=== PATIENT | female | born 1950 | race Caucasian/White ===

== ENCOUNTER 2017-06-16 18:41 | Emergency (ER) | payer OTHER ==
[~2017-06-16] VITALS: Ht 167.6 cm; Wt 110.4 kg
[~2017-06-16 18:41] MED LIST: PRMUNK; [UNRECOGNIZED DRUG - REMARK]; [UNRECOGNIZED DRUG - REMARK]
[2017-06-16 18:44] VITALS: TEMP 36.5; Ht 167.6 cm; Wt 110.4 kg
[2017-06-16] MEDS ORDERED: ACETAMINOPHEN 500 MG TAB PO STA (18:55)
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
--- NOTE | 2017-06-16 19:39 | DIAGNOSTIC IMAGING REPORT ---
HEAD WITHOUT CONTRAST (CT) CT DOSE: HISTORY: Trauma fell from [employer] 2 days ago TECHNIQUE: Multiaxial CT images of the head were performed without the use of intravenous contrast. A dose lowering technique was utilized adhering to the principles of ALARA. Comparison: 11/12/2009 Findings: The paranasal sinuses and mastoid air cells are clear. The calvarium and skull base are intact. The ventricles and sulci are within normal limits. There is no mass, hematoma, midline shift, or acute infarct. Impression: No acute intracranial abnormality. The above report was generated using voice recognition software. It may contain grammatical, syntax or spelling errors. Electronically signed by: Remington Hernandez M.D. 06/16/2017 7:38 PM Dictated Date/Time: 06/16/2017 7:37 PM
--- NOTE | 2017-06-16 19:41 | DIAGNOSTIC IMAGING REPORT ---
CERVICAL SPINE W/O CT DOSE: 1053.67 mGy.cm HISTORY: Trauma fell from [employer] 2 days ago TECHNIQUE: Multiaxial CT images of the cervical spine were performed and reformatted in the sagittal and coronal plane without the use of contrast. A dose lowering technique was utilized adhering to the principles of ALARA. COMPARISON: 11/10/2009 FINDINGS: No fractures. No subluxation. Prevertebral soft tissues and the C1-C2 interval are intact. No pneumothorax. IMPRESSION: No fractures within the cervical spine. Moderate degenerative change The above report was generated using voice recognition software. It may contain grammatical, syntax or spelling errors. Electronically signed by: Remington Hernandez M.D. 06/16/2017 7:40 PM Dictated Date/Time: 06/16/2017 7:39 PM
[2017-06-16 19:50] VITALS: BP 160/91; PULSE 77; O2SAT 99
[2017-06-16] MEDS ORDERED: CLON1TAB3 PO (19:56)
[2017-06-16] MEDS ORDERED: DIPH-416 PO (19:56)
[2017-06-16] MEDS ORDERED: ESTR0.3T PO (19:56)
== END 2017-06-16 19:58 | disposition home or self-care (01) ==
LOC: C.EDB 18:43 → C.EDA 19:58
DX: S09.90XA Unspecified injury of head, initial encounter (principal); S16.1XXA Strain of muscle, fascia and tendon at neck level, initial encounter; S30.0XXA Contusion of lower back and pelvis, initial encounter; W18.39XA Other fall on same level, initial encounter; H53.8 Other visual disturbances

== ENCOUNTER 2018-03-03 15:23 | Emergency (ER) | payer OTHER ==
[~2018-03-03] VITALS: Ht 167.6 cm; Wt 114.8 kg
[~2018-03-03 15:23] MED LIST changes: +CLON1TAB3 PO; +DIPH-416 PO; +ESTR0.3T PO; -PRMUNK; -[UNRECOGNIZED DRUG - REMARK]; -[UNRECOGNIZED DRUG - REMARK]
[2018-03-03 15:30] VITALS: TEMP 36.3; Ht 167.6 cm; Wt 114.8 kg
[2018-03-03] MEDS ORDERED: SODIUM CHLORIDE 0.9% 1000ML 1,000 ML IV STA (16:00)
[2018-03-03] MEDS ORDERED: MECLIZINE HCL 25 MG TAB PO STA (16:00)
[2018-03-03] MEDS ORDERED: ONDANSETRON INJ 2 MG/ML 2 ML VIAL IV STA (16:00)
[2018-03-03] MEDS ORDERED: DIAZEPAM INJ 5 MG/ML 2 ML CARP IV STA (16:00)
[2018-03-03] MEDS ORDERED: SODIUM CHLORIDE 0.9% 500ML 500 ML IV STA (16:00)
[2018-03-03] MEDS ORDERED: ACETAMINOPHEN 500 MG TAB PO STA (16:00)
[2018-03-03 16:10] LABS: BASO % 0.4 %; BASO ABS # 0.03 K/uL (0-0.2); EOS % 2.2 %; EOS ABS # 0.16 K/uL (0-0.5); HEMATOCRIT 42.1 % (37-47); HEMOGLOBIN 14.2 g/dL (12.0-16.0); IG# 0.01 K/uL (0.00-0.02); LYMPH % 32.6 %; LYMPH ABS # 2.36 K/uL (1.2-3.4); MEAN CELL VOLUME 90.3 fL (80-100); MEAN CORPUSCULAR HEMOGLOBIN 30.5 pg (25-34); MEAN CORPUSCULAR HGB CONC 33.7 g/dl (32-36); MEAN PLATELET VOLUME 10.6 fL (7.4-10.4); MONO % 5.2 %; MONO ABS # 0.38 K/uL (0.11-0.59); NEUT % 59.5 %; PLATELET COUNT 188 K/uL (130-400); RED CELL DISTRIBUTION WIDTH CV 13.4 % (11.5-14.5); RED CELL DISTRIBUTION WIDTH SD 44.1 fL (36.4-46.3); WHITE BLOOD COUNT 7.24 K/uL (4.8-10.8)
[2018-03-03 16:13] VITALS: O2SAT 98
[2018-03-03 16:15] LABS: INR 0.9 (0.9-1.1); PTT PATIENT 24.9 SECONDS (21.0-31.0)
[2018-03-03 16:18] LABS: ALBUMIN 3.5 gm/dl (3.4-5.0); ALT/SGPT 24 U/L (12-78); AST/SGOT 14 U/L (15-37); BLOOD UREA NITROGEN 9 mg/dl (7-18); CARBON DIOXIDE 29 mmol/L (21-32); CREATININE 0.99 mg/dl (0.60-1.20); GLUCOSE 115 mg/dl (70-99); LIPASE 105 U/L (73-393); POTASSIUM 3.8 mmol/L (3.5-5.1); SODIUM 141 mmol/L (136-145)
--- NOTE | 2018-03-03 16:22 | DIAGNOSTIC IMAGING REPORT ---
CHEST ONE VIEW PORTABLE HISTORY: 67 years-old Female EVALUATE WEAKNESS acute weakness COMPARISON: None available TECHNIQUE: Portable AP view of the chest FINDINGS: Cardiomediastinal and hilar silhouettes are within normal limits. Linear subsegmental bibasilar opacities suggest atelectasis. There is no pneumothorax, pleural effusion, focal airspace consolidation or overt pulmonary edema. The bones of the chest appear grossly intact. Degenerative changes are seen within the shoulders and spine. IMPRESSION: No acute process. The above report was generated using voice recognition software. It may contain grammatical, syntax or spelling errors. Electronically signed by: Junior Patel M.D. 03/03/2018 4:20 PM Dictated Date/Time: 03/03/2018 4:19 PM
[2018-03-03 16:29] LABS: ALKALINE PHOSPHATASE 64 U/L (45-117); TOTAL PROTEIN 7.2 gm/dl (6.4-8.2)
--- NOTE | 2018-03-03 16:45 | DIAGNOSTIC IMAGING REPORT ---
HEAD WITHOUT CONTRAST (CT) CLINICAL HISTORY: 67 years-old Female with EVALUATE WEAKNESS. Acute weakness with dizziness TECHNIQUE: Multiple axial CT images of the head were obtained without contrast. A dose lowering technique was utilized adhering to the principles of ALARA. CT DOSE: 788.63 mGycm COMPARISON: Head CT 2016. FINDINGS: No acute intracranial hemorrhage, midline shift, intracranial mass, hydrocephalus, territorial ischemia or abnormal extra-axial collection. Senescent calcifications of the lentiform nuclei. Mild atrophy. Mild degree of ill-defined low-attenuation within the subcortical and periventricular white matter suggests chronic microvascular ischemic changes. The calvarium is intact. The paranasal sinuses, mastoid air cells, and middle ear cavities are clear. IMPRESSION: No acute intracranial abnormality. The above report was generated using voice recognition software. It may contain grammatical, syntax or spelling errors. Electronically signed by: Junior Patel M.D. 03/03/2018 4:43 PM Dictated Date/Time: 03/03/2018 4:41 PM
[2018-03-03] MEDS ORDERED: ATR10 PO (17:14)
[2018-03-03] MEDS ORDERED: BUPRTAB PO (17:14)
[2018-03-03] MEDS ORDERED: ESCI1TAB10 PO (17:14)
[2018-03-03] MEDS ORDERED: ESTR1TAB2 PO (17:14)
[2018-03-03] MEDS ORDERED: CLON2TAB3 PO (17:14)
[2018-03-03] MEDS ORDERED: MECL1TAB42 PO (18:52)
[2018-03-03] MEDS ORDERED: MECLIZINE HCL 25MG HOME PACK PO ONE (19:00)
[2018-03-03 19:02] VITALS: BP 136/78; PULSE 86; O2SAT 97
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
== END 2018-03-03 19:02 | disposition home or self-care (01) ==
LOC: EDBD 15:23 → C.EDC 15:24
DX: R42 Dizziness and giddiness (principal); S06.9X9A Unspecified intracranial injury with loss of consciousness of unspecified duration, initial encounter; W18.39XA Other fall on same level, initial encounter; W22.8XXA Striking against or struck by other objects, initial encounter; Z90.710 Acquired absence of both cervix and uterus; Z88.4 Allergy status to anesthetic agent; Z83.3 Family history of diabetes mellitus; Z82.49 Family history of ischemic heart disease and other diseases of the circulatory system; Z84.1 Family history of disorders of kidney and ureter; Z82.0 Family history of epilepsy and other diseases of the nervous system

== ENCOUNTER 2022-02-03 11:21 | Observation (INO) ==
[2022-02-03] MEDS ORDERED: SODIUM CHLORIDE 0.9% 1000ML 1,000 ML IV ONE (11:53)
--- NOTE | 2022-02-03 12:01 | Emergency Department Note ---
Impression & Plan Dizziness, Weakness, Acute dehydration, Falling ED Provider Note NAME: ABILIO GALDAMEZ AGE: 71 SEX: F : 1950 ARRIVES VIA: Ambulance INFORMANT: [Patient] ED PROVIDER(S): [Marquis Ang MD] CHIEF COMPLAINT: Dizziness HISTORY OF PRESENT ILLNESS: The patient is a 71-year-old female who presents to the ER with 24 hours of dizziness and falling. The patient states that she is fine when she is not moving but when she tries to get around, she is quite off balance and has fallen at least 4 times. She has some neck soreness and some lower back soreness from falling. One time, she fell onto her face although, she did not suffer any nasal bleeding. The patient has not noticed one-sided weakness. No urinary complaints. No fever, chills, cough or congestion. The patient did try meclizine for her symptoms, this has not helped. REVIEW OF SYSTEMS: See HPI for pertinent positives and negatives. A total of ten systems were reviewed and were otherwise negative. PMHx/PSHx: See Below SOCIAL HISTORY: See Below. PHYSICAL EXAM: GENERAL: Patient is in no acute distress. HEENT: No acute trauma, normocephalic atraumatic, mucous membranes dry, no nasal congestion, no scleral icterus. No nystagmus. NECK: No stridor, no adenopathy, no meningismus, trachea is midline. LUNGS: Clear to auscultation bilaterally, no wheeze, no rhonchi, breath sounds equal. HEART: Without murmurs gallops or rubs, regular rate and rhythm. Heart tones are distant. ABDOMEN: Soft, nontender, bowel sounds positive, no hernias, no peritonitis. EXTREMITIES: No cyanosis or edema, full range of motion of all the joints without pain or difficulty, no signs for acute trauma. NEUROLOGIC: Oriented x 3, no acute motor or sensory deficits, no focal weakness. No speech slur or facial droop. No extremity drift. No cerebellar dysfunction. SKIN: No rash, no jaundice, no diaphoresis. DIFFERENTIAL DIAGNOSIS: Infection, UTI, dehydration, metabolic abnormality, hypo/hyperglycemia, electrolyte disturbance, anemia, hypoxia, cardiac sources, intracerebral event, toxicologic issues, stroke, TIA, vertigo, as well as other pathologies. EMERGENCY DEPARTMENT COURSE/PROCEDURES: ECG: Indication was weakness. The ECG shows a normal sinus rhythm with a rate of 70. There is no ST elevation, no PVCs. The QTc is 451. Continuous Cardiac Monitoring: An order was placed for continuous cardiac monitoring. The monitor shows a rate of 65 with normal sinus rhythm. Critical Care Note: I have personally spent 41 minutes of critical care time in the direct management of this patient. This includes bedside care, interpretation of diagnostic studies, and testing, discussion with consultants, patient, and family members, and other required patient management activities. This 41 minutes is in excess of all separately billable procedures. MEDICAL DECISION MAKING: There is no leukocytosis. There is no anemia. There is a normal platelet cou nt. No coagulopathy. No significant electrolyte abnormality or kidney failure. ECG shows a normal sinus rhythm, no obvious ST elevation. Cardiac enzyme testing x1 is not consistent with acute cardiac injury. There is no liver enzyme elevation. Urinalysis does not show infection. Covid testing returned negative. Brain CT shows no acute bleed or mass-effect. CT angio of the brain and neck were performed, there was no stenosis or aneurysm seen. No clot noted. CT of the lumbar spine does not show any acute fracture, CT of the cervical spine does not show any acute fracture. On exam, there were no focal neurologic deficits. There was no speech slur. The patient did seem dehydrated. Patient had fallen 4 times in 24 hours because of her dizziness/weakness. The patient was given IV saline, 1 L. She has been resting comfortably on the stretcher. The patient presents with findings consistent for posterior circulation stroke. Vertigo of course is also a potential cause of her complaints. She is weak, she is falling, she is not stable for discharge home. Further neurologic work-up is warranted. I spoke with the patient and case management. The on-call hospitalist was carlos blankenship. Past Med/Surg History Medical History BPPV (benign paroxysmal positional vertigo) Depression with anxiety IBS (irritable bowel syndrome) Obesity (BMI 30-39.9) Pre-diabetes Reflex sympathetic dystrophy Surgical History (Updated 02/03/22 @ 14:08 by Leslie Jacobs PA-C) History of ankle surgery History of cholecystectomy History of hand surgery History of shoulder surgery S/P hysterectomy Family History (Updated 02/03/22 @ 14:09 by Leslie Jacobs PA-C) Mother , 79 Myocardial infarction Father , 74 Liver disease Social History Smoking Status: Never smoker Hx Alcohol Use: No Hx Substance Use: No Preferred Language: Slovak Communication Ability: Effective marital status: / Current Living Situation: Alone current occupational status: disabled Feels Safe at Home: Yes Allergies Allergies Allergy/AdvReac Type Severity Reaction Status Date / Time LOCAL ANESTHESIA Allergy Unknown Unknown Uncoded 05/26/21 15:06 GENERAL ANESTHESIA AdvReac Intermediate BLOOD Uncoded 05/26/21 15:06 PRESSURE AND TEMP DROPPED Home Meds Home Medications Medication Instructions Recorded Confirmed clonazepam 2 mg tablet (Klonopin) 2 mg PO TID 11/15/19 02/03/22 diphenoxylate-atropine 2.5 2 tab PO QID PRN 11/15/19 02/03/22 mg-0.025 mg tablet escitalopram oxalate 20 mg tablet 20 mg PO DAILY 11/15/19 02/03/22 estradiol 1 mg tablet (Estrace) 1 mg PO DAILY 11/15/19 02/03/22 meclizine 25 mg tablet 25 mg PO TID 02/03/22 02/03/22 Results & Data (ED) Vital Signs Vital Signs - 24 hr 02/03/22 11:29 02/03/22 11:38 02/03/22 12:00 Temperature 36.6 C Temperature Source Oral Pulse Rate 65 Pulse Rate [Left] Pulse Rhythm Regular Pulse Rhythm [Left] Pulse Strength Normal Pulse Strength [Left] Respiratory Rate 18 Respiratory Effort / Characteristics Non-Labored Spontaneous Respiratory Depth Normal Respiratory Pattern Blood Pressure 178/110 H Blood Pressure [Left Arm] 155/75 H Blood Pressure Mean 132 Blood Pressure Mean [Left Arm] 101 Blood Pressure Position Lying Blood Pressure Position [Left Arm] Pulse Oximetry 98 98 Oxygen Delivery Method Room Air Room Air Oxygen Flow Rate 0 Sepsis Recent Fever Within 48 Hours No Sepsis New/Unexplained Change in Mental Status N/A Sepsis Action Taken by Nursing No Action Required 02/03/22 14:00 02/03/22 17:03 Temperature Temperature Source Pulse Rate Pulse Rate [Left] 67 63 Pulse Rhythm Pulse Rhythm [Left] Regular Pulse Strength Pulse Strength [Left] Normal Respiratory Rate 16 16 Respiratory Effort / Characteristics Non-Labored Spontaneous Non-Labored Spontaneous Respiratory Depth Normal Normal Respiratory Pattern Regular Blood Pressure Blood Pressure [Left Arm] 159/90 H 167/86 H Blood Pressure Mean Blood Pressure Mean [Left Arm] 113 113 Blood Pressure Position Blood Pressure Position [Left Arm] Lying Lying Pulse Oximetry 98 97 Oxygen Delivery Method Room Air Room Air Oxygen Flow Rate Sepsis Recent Fever Within 48 Hours Sepsis New/Unexplained Change in Mental Status Sepsis Action Taken by Longterm Medications Current Medication List: was personally reviewed by me Laboratory Data Attestation: I reviewed the patient's lab results. Result diagrams: 02/03/22 11:55 02/03/22 11:55 Lab Results 02/03/22 02/03/22 02/03/22 Range/Units 11:52 11:55 11:55 WBC 4.76 L (4.8-10.8) K/uL RBC 4.71 (4.2-5.4) M/uL Hgb 14.5 (12.0-16.0) g/dL Hct 41.6 (37-47) % MCV 88.3 (80-100) fL MCH 30.8 (25-34) pg MCHC 34.9 (32-36) g/dL RDW Std Deviation 42.6 (36.4-46.3) fL RDW Coeff of Gladis 13.1 (11.5-14.5) % Plt Count 141 (130-400) K/uL MPV 11.0 H (7.4-10.4) fL Immature Gran % (Auto) 0.2 % Neut % (Auto) 67.4 % Lymph % (Auto) 24.2 % Wood % (Auto) 6.1 % Eos % (Auto) 1.9 % Baso % (Auto) 0.2 % Neut # (Auto) 3.21 (1.4-6.5) K/uL Lymph # (Auto) 1.15 L (1.2-3.4) K/uL Wood # (Auto) 0.29 (0.11-0.59) K/uL Eos # (Auto) 0.09 (0-0.5) K/uL Baso # (Auto) 0.01 (0-0.2) K/uL Immature Gran # (Auto) 0.01 (0.00-0.02) K/uL PT 10.7 (9.0-12.0) Seconds INR 1.0 (0.9-1.1) APTT 24.2 (21.0-31.0) Seconds PTT Ratio 0.9 Sodium (136-145) mmol/L Potassium (3.5-5.1) mmol/L Chloride (98-107) mmol/L Carbon Dioxide (21-32) mmol/L Anion Gap (3-11) BUN (6-23) mg/dl Creatinine (0.6-1.2) mg/dl Est Cr Clr Drug Dosing ml/min Est GFR ( Amer) ml/min Est GFR (Non-Af Amer) ml/min BUN/Creatinine Ratio (10-20) Glucose (70-99(Fasting)) mg/dl Calcium (8.5-10.1) mg/dl Magnesium (1.7-2.4) mg/dl Total Bilirubin (0.2-1.0) mg/dl AST (13-39) U/L ALT (7-52) U/L Alkaline Phosphatase (34-104) U/L Troponin I (0-0.04) ng/ml Total Protein (6.0-8.3) gm/dl Albumin (3.4-5.0) gm/dl Globulin (2.5-4.0) gm/dl Albumin/Globulin Ratio (0.9-2) Urine Color Yellow Urine Appearance Clear (Clear) Urine pH 7.5 (4.5-7.5) Ur Specific Crocker 1.008 (1.000-1.030) Urine Protein Negative (Negative) Urine Glucose (UA) Negative (Negative) Urine Ketones Negative (Negative) Urine Blood Negative (Negative) Urine Nitrite Negative (Negative) Urine Bilirubin Negative (Negative) Urine Urobilinogen Negative (Negative) Ur Leukocyte Esterase Negative (Negative) SARS-CoV-2, RNA, NAAT (NEGATIVE) 02/03/22 02/03/22 Range/Units 11:55 15:13 WBC (4.8-10.8) K/uL RBC (4.2-5.4) M/uL Hgb (12.0-16.0) g/dL Hct (37-47) % MCV (80-100) fL MCH (25-34) pg MCHC (32-36) g/dL RDW Std Deviation (36.4-46.3) fL RDW Coeff of Gladis (11.5-14.5) % Plt Count (130-400) K/uL MPV (7.4-10.4) fL Immature Gran % (Auto) % Neut % (Auto) % Lymph % (Auto) % Wood % (Auto) % Eos % (Auto) % Baso % (Auto) % Neut # (Auto) (1.4-6.5) K/uL Lymph # (Auto) (1.2-3.4) K/uL Wood # (Auto) (0.11-0.59) K/uL Eos # (Auto) (0-0.5) K/uL Baso # (Auto) (0-0.2) K/uL Immature Gran # (Auto) (0.00-0.02) K/uL PT (9.0-12.0) Seconds INR (0.9-1.1) APTT (21.0-31.0) Seconds PTT Ratio Sodium 140 (136-145) mmol/L Potassium 4.0 (3.5-5.1) mmol/L Chloride 108 H (98-107) mmol/L Carbon Dioxide 27 (21-32) mmol/L Anion Gap 5 (3-11) BUN 13 (6-23) mg/dl Creatinine 0.76 (0.6-1.2) mg/dl Est Cr Clr Drug Dosing 86.3 ml/min Est GFR ( Amer) 90.2 ml/min Est GFR (Non-Af Amer) 77.8 ml/min BUN/Creatinine Ratio 17.1 (10-20) Glucose 107 H (70-99(Fasting)) mg/dl Calcium 8.9 (8.5-10.1) mg/dl Magnesium 2.1 (1.7-2.4) mg/dl Total Bilirubin 0.8 (0.2-1.0) mg/dl AST 14 (13-39) U/L ALT 17 (7-52) U/L Alkaline Phosphatase 45 (34-104) U/L Troponin I < 0.03 (0-0.04) ng/ml Total Protein 7.0 (6.0-8.3) gm/dl Albumin 4.1 (3.4-5.0) gm/dl Globulin 2.9 (2.5-4.0) gm/dl Albumin/Globulin Ratio 1.4 (0.9-2) Urine Color Urine Appearance (Clear) Urine pH (4.5-7.5) Ur Specific Crocker (1.000-1.030) Urine Protein (Negative) Urine Glucose (UA) (Negative) Urine Ketones (Negative) Urine Blood (Negative) Urine Nitrite (Negative) Urine Bilirubin (Negative) Urine Urobilinogen (Negative) Ur Leukocyte Esterase (Negative) SARS-CoV-2, RNA, NAAT NEGATIVE (NEGATIVE) Administered Medications Discontinued Medications Gadobutrol (Gadobutrol 65ml Vial) 11.4 ml IV ONCE ONE Stop: 02/03/22 17:44 Last Admin: 02/03/22 17:44 Dose: 11.4 ml Documented by: [id number] Sodium Chloride (Nss 1000ml) 1,000 mls @ 999 mls/hr IV .Q1H1M ONE Stop: 02/03/22 12:53 Last Infusion: 02/03/22 13:59 Dose: 0 mls/hr Documented by: [id number] Admin: 02/03/22 12:40 Dose: 999 mls/hr Documented by: [id number] Ioversol (Optiray 320 125ml) 120 ml IV ONCE ONE Stop: 02/03/22 13:15 Last Admin: 02/03/22 13:01 Dose: 120 ml Documented by: [id number] Lorazepam (Lorazepam 2 Mg/1 Ml Vial) 1 mg IV ONE ONE Stop: 02/03/22 15:01 Last Admin: 02/03/22 17:22 Dose: 1 mg Documented by: [id number] Lorazepam (Lorazepam 2 Mg/1 Ml Vial) Confirm Administered Dose 2 mg .ROUTE .STK- MED ONE Stop: 02/03/22 17:13 Last Admin: 02/03/22 18:01 Dose: Not Given Documented by: [id number] Imaging Data Radiologist's Impression: Head CT 02/03/22 11:[address] OF THE BRAIN; CT ANGIOGRAM OF THE BRAIN; CT ANGIOGRAM OF THE NECK CLINICAL HISTORY: Strokelike symptoms. Dizziness and falls. COMPARISON STUDY: CT of the brain dated 05/26/2021. CT angiogram of the head and neck dated 11/15/2019.. TECHNIQUE: Unenhanced axial CT scan of the brain is performed. Subsequently, following the IV administration of 120 of Optiray 320, CT angiogram of the head and neck was performed from the aortic arch to the vertex. Images are reviewed in the axial, sagittal, and coronal planes. 3-D MIPS images are created and assessed. IV contrast was administered without complication. All measurements were calculated based on NASCET criteria. A dose lowering technique was utilized adhering to the principles of ALARA. CT DOSE: 2297.43 mGy.cm FINDINGS: Brain parenchyma: There is minimal microangiopathic change. There is no hemorrhage, mass effect, or evidence of acute territorial ischemia by CT criteria. There is no evidence of enhancing mass lesion on the angiogram phase images. The ventricles, sulci, and cisterns are normal in configuration. Ken- white matter differentiation is preserved. No extra-axial fluid collection is seen. Mineralization is noted in the basal ganglia. Thoracic aorta: Visualized portions of the thoracic aorta are normal in caliber. The aortic arch demonstrates standard 3-vessel anatomy. Right carotid arterial system: The right common carotid artery is widely patent, as are the right internal and external carotid arteries. Left carotid arterial system: The left common carotid artery is widely patent, as are the internal and external carotid arteries. Vertebral arteries: The vertebral arteries are widely patent bilaterally and codominant. Subclavian arteries: Widely patent bilaterally. Intracranial vasculature: There is mild atherosclerotic calcification of the cavernous carotid arteries. The internal carotid arteries are patent at the skull base, as are the anterior and middle cerebral arteries bilaterally. The vertebrobasilar system and posterior cerebral arteries are widely patent. The vertebral arteries are codominant. There is no aneurysm, high-grade stenosis, or focal vessel cut off seen throughout the intracranial circulation. Jugular veins: Patent bilaterally. Dural sinuses: Patent. Lung apices: Partially visualized upper lobe lung parenchyma appears clear. Soft tissues: The visualized pharyngeal soft tissues are normal in appearance noting angiographic phase technique. The oropharyngeal airway appears widely patent. Left lobe thyroid nodules unchanged and measure up to 8 mm. The salivary glands are normal in appearance. No cervical lymphadenopathy is seen. Skeletal structures: The skeletal structures are osteopenic. The calvarium appears intact. The cervical spine is maintained noting mild spondylosis. No lytic or blastic lesion is seen. Sinuses and mastoids: The paranasal sinuses are clear. The mastoid air cells are well pneumatized. IMPRESSION: 1. There is no hemorrhage, mass effect, or evidence of acute territorial ische casey by CT criteria. 2. Unremarkable CT angiogram of the brain. 3. Unremarkable CT angiogram of the neck. ACT 112: Negative or not required by law. Electronically signed by: Marquis Ivan M.D. 02/03/2022 1:26 PM Head CTA 02/03/22 11:[address] OF THE BRAIN; CT ANGIOGRAM OF THE BRAIN; CT ANGIOGRAM OF THE NECK CLINICAL HISTORY: Strokelike symptoms. Dizziness and falls. COMPARISON STUDY: CT of the brain dated 05/26/2021. CT angiogram of the head and neck dated 11/15/2019.. TECHNIQUE: Unenhanced axial CT scan of the brain is performed. Subsequently, following the IV administration of 120 of Optiray 320, CT angiogram of the head and neck was performed from the aortic arch to the vertex. Images are reviewed in the axial, sagittal, and coronal planes. 3-D MIPS images are created and assessed. IV contrast was administered without complication. All measurements were calculated based on NASCET criteria. A dose lowering technique was utilized adhering to the principles of ALARA. CT DOSE: 2297.43 mGy.cm FINDINGS: Brain parenchyma: There is minimal microangiopathic change. There is no hemorrhage, mass effect, or evidence of acute territorial ischemia by CT criteria. There is no evidence of enhancing mass lesion on the angiogram phase images. The ventricles, sulci, and cisterns are normal in configuration. Ken- white matter differentiation is preserved. No extra-axial fluid collection is seen. Mineralization is noted in the basal ganglia. Thoracic aorta: Visualized portions of the thoracic aorta are normal in caliber. The aortic arch demonstrates standard 3-vessel anatomy. Right carotid arterial system: The right common carotid artery is widely patent, as are the right internal and external carotid arteries. Left carotid arterial system: The left common carotid artery is widely patent, as are the internal and external carotid arteries. Vertebral arteries: The vertebral arteries are widely patent bilaterally and codominant. Subclavian arteries: Widely patent bilaterally. Intracranial vasculature: There is mild atherosclerotic calcification of the cavernous carotid arteries. The internal carotid arteries are patent at the skull base, as are the anterior and middle cerebral arteries bilaterally. The vertebrobasilar system and posterior cerebral arteries are widely patent. The vertebral arteries are codominant. There is no aneurysm, high-grade stenosis, or focal vessel cut off seen throughout the intracranial circulation. Jugular veins: Patent bilaterally. Dural sinuses: Patent. Lung apices: Partially visualized upper lobe lung parenchyma appears clear. Soft tissues: The visualized pharyngeal soft tissues are normal in appearance noting angiographic phase technique. The oropharyngeal airway appears widely patent. Left lobe thyroid nodules unchanged and measure up to 8 mm. The salivary glands are normal in appearance. No cervical lymphadenopathy is seen. Skeletal structures: The skeletal structures are osteopenic. The calvarium appears intact. The cervical spine is maintained noting mild spondylosis. No lytic or blastic lesion is seen. Sinuses and mastoids: The paranasal sinuses are clear. The mastoid air cells are well pneumatized. IMPRESSION: 1. There is no hemorrhage, mass effect, or evidence of acute territorial ischemia by CT criteria. 2. Unremarkable CT angiogram of the brain. 3. Unremarkable CT angiogram of the neck. ACT 112: Negative or not required by law. Electronically signed by: Marquis Ivan M.D. 02/03/2022 1:26 PM Neck CTA 02/03/22 11:[address] OF THE BRAIN; CT ANGIOGRAM OF THE BRAIN; CT ANGIOGRAM OF THE NECK CLINICAL HISTORY: Strokelike symptoms. Dizziness and falls. COMPARISON STUDY: CT of the brain dated 05/26/2021. CT angiogram of the head and neck dated 11/15/2019.. TECHNIQUE: Unenhanced axial CT scan of the brain is performed. Subsequently, following the IV administration of 120 of Optiray 320, CT angiogram of the head and neck was performed from the aortic arch to the vertex. Images are reviewed in the axial, sagittal, and coronal planes. 3-D MIPS images are created and assessed. IV contrast was administered without complication. All measurements were calculated based on NASCET criteria. A dose lowering technique was utilized adhering to the principles of ALARA. CT DOSE: 2297.43 mGy.cm FINDINGS: Brain parenchyma: There is minimal microangiopathic change. There is no h emorrhage, mass effect, or evidence of acute territorial ischemia by CT criteria. There is no evidence of enhancing mass lesion on the angiogram phase images. The ventricles, sulci, and cisterns are normal in configuration. Ken- white matter differentiation is preserved. No extra-axial fluid collection is seen. Mineralization is noted in the basal ganglia. Thoracic aorta: Visualized portions of the thoracic aorta are normal in caliber. The aortic arch demonstrates standard 3-vessel anatomy. Right carotid arterial system: The right common carotid artery is widely patent, as are the right internal and external carotid arteries. Left carotid arterial system: The left common carotid artery is widely patent, as are the internal and external carotid arteries. Vertebral arteries: The vertebral arteries are widely patent bilaterally and codominant. Subclavian arteries: Widely patent bilaterally. Intracranial vasculature: There is mild atherosclerotic calcification of the cavernous carotid arteries. The internal carotid arteries are patent at the skull base, as are the anterior and middle cerebral arteries bilaterally. The vertebrobasilar system and posterior cerebral arteries are widely patent. The vertebral arteries are codominant. There is no aneurysm, high-grade stenosis, or focal vessel cut off seen throughout the intracranial circulation. Jugular veins: Patent bilaterally. Dural sinuses: Patent. Lung apices: Partially visualized upper lobe lung parenchyma appears clear. Soft tissues: The visualized pharyngeal soft tissues are normal in appearance noting angiographic phase technique. The oropharyngeal airway appears widely patent. Left lobe thyroid nodules unchanged and measure up to 8 mm. The salivary glands are normal in appearance. No cervical lymphadenopathy is seen. Skeletal structures: The skeletal structures are osteopenic. The calvarium appears intact. The cervical spine is maintained noting mild spondylosis. No lytic or blastic lesion is seen. Sinuses and mastoids: The paranasal sinuses are clear. The mastoid air cells are well pneumatized. IMPRESSION: 1. There is no hemorrhage, mass effect, or evidence of acute territorial ischemia by CT criteria. 2. Unremarkable CT angiogram of the brain. 3. Unremarkable CT angiogram of the neck. ACT 112: Negative or not required by law. Electronically signed by: Marquis Ivan M.D. 02/03/2022 1:[address] 02/03/22 11:[address] DOSE: HISTORY: fall, neck pain TECHNIQUE: Multiaxial CT images of the cervical spine were performed and reformatted in the sagittal and coronal plane without the use of contrast. A dose lowering technique was utilized adhering to the principles of ALARA. COMPARISON: Cervical spine CT 11/15/2019. FINDINGS: No fractures. No subluxation. Prevertebral soft tissues and the C1-C2 interval are intact. No pneumothorax. The bilateral C3-C4 facets are fused. There is moderate degenerative disc disease at C5-C6. IMPRESSION: No fractures within the cervical spine. ACT 112: Negative or not required by law. Electronically signed by: Dc Parham M.D. 02/03/2022 1:[address] 02/03/22 11:[address] DOSE: HISTORY: fall, back pain TECHNIQUE: Multiaxial CT images of the lumbar spine were performed and reformatted in the sagittal and coronal plane without the use of contrast. A dose lowering technique was utilized adhering to the principles of ALARA. COMPARISON: None. FINDINGS: No fracture or subluxation within the lumbar spine. No high-grade central canal stenosis identified by CT technique. Paravertebral soft tissues are unremarkable. Prior cholecystectomy. Mild disc space narrowing at L2-L3. Moderate facet degenerative changes within the lower lumbar spine. The visual ized sacrum is intact. IMPRESSION: No fractures within the lumbar spine. ACT 112: Negative or not required by law. Electronically signed by: Dc Parham M.D. 02/03/2022 1:26 PM Brain MRI 02/03/22 14:35 Brain MRI WITH AND WITHOUT CONTRAST HISTORY: Headache. dizziness, inability to walk TECHNIQUE: Multiplanar multisequence MRI of the brain was performed both before and after the intravenous administration of contrast. COMPARISON STUDY: Head CT 02/03/2022. FINDINGS: There is no hematoma, midline shift, or acute infarct. The paranasal sinuses are clear. The mastoid air cells are clear. The ventricles and sulci demonstrate mild age-related involutional changes. Scattered foci of T2 hyp erintensity seen within the periventricular and subcortical white matter are nonspecific but suggestive of mild microvascular ischemic changes. The major vascular flow voids at the skull base are well-maintained. Best seen on axial T1 postcontrast image 8 within the prepontine cistern and abutting the left side of the clivus there is a 6 mm T2 hyperintense, T1 hypointense enhancing extra-axial nodule. This favors a small meningioma. No mass effect along the adjacent basilar artery. IMPRESSION: 1. No acute intracranial abnormality. 2. Scattered foci of T2 hyperintensity seen within the periventricular and subcortical white matter are nonspecific but favor microvascular ischemic change.. 3. A 6 mm enhancing extra-axial nodule abutting the left side of the clivus. This favors a small meningioma. ACT 112: Negative or not required by law. Electronically signed by: Dc Parham M.D. 02/03/2022 6:33 PM Discharge Plan Visit Data Chief Complaint: Dizziness ED Provider: Marquis Ang Discharge Problem: Dizziness, Weakness, Acute dehydration, Falling Patient Disposition: Admitted As Inpatient Condition: Fair Forms [facility] Prescriptions: No Action diphenoxylate-atropine 2.5-0.025 mg tablet 2 tab PO QID PRN (Reason: Diarrhea) RF: 0 estradiol [Estrace] 1 mg tablet 1 mg PO DAILY RF: 0 clonazepam [Klonopin] 2 mg tablet 2 mg PO TID RF: 0 escitalopram oxalate 20 mg tablet 20 mg PO DAILY RF: 0 meclizine 25 mg tablet 25 mg PO TID RF: 0 Referrals Referrals: Donnie Guillory MD [Primary Care Provider] -
[2022-02-03 12:12] LABS: Basophils # (auto) 0.01 K/uL (0-0.2); Basophils % (auto) 0.2 %; Eosinophils # (auto) 0.09 K/uL (0-0.5); Eosinophils % (auto) 1.9 %; Hematocrit (blood only) 41.6 % (37-47); Hemoglobin 14.5 g/dL (12.0-16.0); Immature Granulocytes # (auto) 0.01 K/uL (0.00-0.02); Immature Granulocytes % (auto) 0.2 %; Lymphocytes # (auto) 1.15 K/uL (1.2-3.4); Lymphocytes % (auto) 24.2 %; Mean Corpuscular Hemoglobin 30.8 pg (25-34); Mean Corpuscular Hgb Conc 34.9 g/dL (32-36); Mean Corpuscular Volume 88.3 fL (80-100); Monocytes # (auto) 0.29 K/uL (0.11-0.59); Monocytes % (auto) 6.1 %; Neutrophils # (auto) 3.21 K/uL (1.4-6.5); Neutrophils % (auto) 67.4 %; Platelet Count 141 K/uL (130-400); RDW Coefficient of Variation 13.1 % (11.5-14.5); RDW Standard Deviation 42.6 fL (36.4-46.3); Red Blood Count 4.71 M/uL (4.2-5.4); White Blood Count 4.76 K/uL (4.8-10.8)
[2022-02-03 12:27] LABS: Appearance Urine Clear (Clear); Bilirubin Urine Negative (Negative); Blood Urine Negative (Negative); Color Urine Yellow; Glucose Urine UA Negative (Negative); Ketones Urine Negative (Negative); Leukocyte Esterase Urine Negative (Negative); Nitrite Urine Negative (Negative); Protein Urine Negative (Negative); Specific Gravity Urine 1.008 (1.000-1.030); Urobilinogen Urine Negative (Negative); pH Urine 7.5 (4.5-7.5)
[2022-02-03 12:34] LABS: Partial Thromboplastin Ratio 0.9; Partial Thromboplastin Time 24.2 Seconds (21.0-31.0); Prothrombin Time 10.7 Seconds (9.0-12.0)
[2022-02-03 12:40] LABS: Troponin I < 0.03 ng/ml (0-0.04)
[2022-02-03 12:41] LABS: Alanine Aminotransferase 17 U/L (7-52); Albumin Globulin Ratio 1.4 (0.9-2); Albumin Level 4.1 gm/dl (3.4-5.0); Alkaline Phosphatase 45 U/L (34-104); Anion Gap 5 (3-11); Aspartate Aminotransferase 14 U/L (13-39); BUN Creatinine Ratio 17.1 (10-20); Bilirubin,Total 0.8 mg/dl (0.2-1.0); Blood Urea Nitrogen 13 mg/dl (6-23); Calcium 8.9 mg/dl (8.5-10.1); Carbon Dioxide 27 mmol/L (21-32); Chloride 108 mmol/L (98-107); Creatinine Clr Calc Pharmacy 86.3 ml/min; Est GFR (African American) 90.2 ml/min; Est GFR (Non-African American) 77.8 ml/min; Globulin 2.9 gm/dl (2.5-4.0); Glucose 107 mg/dl (70-99(Fasting)); Magnesium 2.1 mg/dl (1.7-2.4); Sodium 140 mmol/L (136-145)
[2022-02-03] MEDS ORDERED: OPTIRAY 320 125ml IV ONE (13:14)
--- NOTE | 2022-02-03 13:28 | CT Scan Report ---
UNENHANCED CT OF THE BRAIN; CT ANGIOGRAM OF THE BRAIN; CT ANGIOGRAM OF THE NECK CLINICAL HISTORY: Strokelike symptoms. Dizziness and falls. COMPARISON STUDY: CT of the brain dated 05/26/2021. CT angiogram of the head and neck dated 11/15/2019. . TECHNIQUE: Unenhanced axial CT scan of the brain is performed. Subsequently, following the IV adminis tration of 120 of Optiray 320, CT angiogram of the head and neck was performed from the aortic arch t o the vertex. Images are reviewed in the axial, sagittal, and coronal planes. 3-D MIPS images are cre ated and assessed. IV contrast was administered without complication. All measurements were calculate d based on NASCET criteria. A dose lowering technique was utilized adhering to the principles of ALA RA. CT DOSE: 2297.43 mGy.cm FINDINGS: Brain parenchyma: There is minimal microangiopathic change. There is no hemorrhage, mass effect, or e vidence of acute territorial ischemia by CT criteria. There is no evidence of enhancing mass lesion o n the angiogram phase images. The ventricles, sulci, and cisterns are normal in configuration. Ken-w dontae matter differentiation is preserved. No extra-axial fluid collection is seen. Mineralization is noted in the basal ganglia. Thoracic aorta: Visualized portions of the thoracic aorta are normal in caliber. The aortic arch demo nstrates standard 3-vessel anatomy. Right carotid arterial system: The right common carotid artery is widely patent, as are the right int ernal and external carotid arteries. Left carotid arterial system: The left common carotid artery is widely patent, as are the internal an d external carotid arteries. Vertebral arteries: The vertebral arteries are widely patent bilaterally and codominant. Subclavian arteries: Widely patent bilaterally. Intracranial vasculature: There is mild atherosclerotic calcification of the cavernous carotid arteri es. The internal carotid arteries are patent at the skull base, as are the anterior and middle cerebr al arteries bilaterally. The vertebrobasilar system and posterior cerebral arteries are widely patent . The vertebral arteries are codominant. There is no aneurysm, high-grade stenosis, or focal vessel c ut off seen throughout the intracranial circulation. Jugular veins: Patent bilaterally. Dural sinuses: Patent. Lung apices: Partially visualized upper lobe lung parenchyma appears clear. Soft tissues: The visualized pharyngeal soft tissues are normal in appearance noting angiographic pha se technique. The oropharyngeal airway appears widely patent. Left lobe thyroid nodules unchanged and measure up to 8 mm. The salivary glands are normal in appearance. No cervical lymphadenopathy is see n. Skeletal structures: The skeletal structures are osteopenic. The calvarium appears intact. The cervic al spine is maintained noting mild spondylosis. No lytic or blastic lesion is seen. Sinuses and mastoids: The paranasal sinuses are clear. The mastoid air cells are well pneumatized. IMPRESSION: 1. There is no hemorrhage, mass effect, or evidence of acute territorial ischemia by CT criteria. 2. Unremarkable CT angiogram of the brain. 3. Unremarkable CT angiogram of the neck. ACT 112: Negative or not required by law. Electronically signed by: Marquis Ivan M.D. 02/03/2022 1:26 PM
--- NOTE | 2022-02-03 13:28 | CT Scan Report ---
LUMBAR SPINE CT CT DOSE: HISTORY: fall, back pain TECHNIQUE: Multiaxial CT images of the lumbar spine were performed and reformatted in the sagittal an d coronal plane without the use of contrast. A dose lowering technique was utilized adhering to the principles of ALARA. COMPARISON: None. FINDINGS: No fracture or subluxation within the lumbar spine. No high-grade central canal stenosis id entified by CT technique. Paravertebral soft tissues are unremarkable. Prior cholecystectomy. Mild di sc space narrowing at L2-L3. Moderate facet degenerative changes within the lower lumbar spine. The v isualized sacrum is intact. IMPRESSION: No fractures within the lumbar spine. ACT 112: Negative or not required by law. Electronically signed by: Dc Parham M.D. 02/03/2022 1:26 PM
--- NOTE | 2022-02-03 13:30 | CT Scan Report ---
CERVICAL SPINE CT CT DOSE: HISTORY: fall, neck pain TECHNIQUE: Multiaxial CT images of the cervical spine were performed and reformatted in the sagittal and coronal plane without the use of contrast. A dose lowering technique was utilized adhering to th e principles of ALARA. COMPARISON: Cervical spine CT 11/15/2019. FINDINGS: No fractures. No subluxation. Prevertebral soft tissues and the C1-C2 interval are intact. No pneumothorax. The bilateral C3-C4 facets are fused. There is moderate degenerative disc disease at C5-C6. IMPRESSION: No fractures within the cervical spine. ACT 112: Negative or not required by law. Electronically signed by: Dc Parham M.D. 02/03/2022 1:29 PM
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
[2022-02-03] MEDS ORDERED: LORazepam 2 MG/1 ML VIAL IV ONE (15:00)
--- NOTE | 2022-02-03 16:12 | Electrocardiogram Report ---
Test Reason : Blood Pressure : / mmHG Vent. Rate : 070 BPM Atrial Rate : 070 BPM P-R Int : 194 ms QRS Dur : 074 ms QT Int : 418 ms P-R-T Axes : 073 026 009 degrees QTc Int : 451 ms Poor data quality, interpretation may be adversely affected Normal sinus rhythm Low voltage QRS Abnormal ECG When compared with ECG of 15-NOV-2019 21:15, No significant change was found Confirmed by Jarek Hayes ([id number]) on 02/03/2022 4:12:03 PM Referred By: Confirmed By:Dangelo Hayes
[2022-02-03] MEDS ORDERED: LORazepam 2 MG/1 ML VIAL ONE (17:12)
[2022-02-03] MEDS ORDERED: GADOBUTROL 65ML VIAL IV ONE (17:43)
--- NOTE | 2022-02-03 18:36 | Magnetic Resonance Report ---
Brain MRI WITH AND WITHOUT CONTRAST HISTORY: Headache. dizziness, inability to walk TECHNIQUE: Multiplanar multisequence MRI of the brain was performed both before and after the intrave nous administration of contrast. COMPARISON STUDY: Head CT 02/03/2022. FINDINGS: There is no hematoma, midline shift, or acute infarct. The paranasal sinuses are clear. The mastoid air cells are clear. The ventricles and sulci demonstrate mild age-related involutional lebron ges. Scattered foci of T2 hyperintensity seen within the periventricular and subcortical white matter are nonspecific but suggestive of mild microvascular ischemic changes. The major vascular flow voids at the skull base are well-maintained. Best seen on axial T1 postcontrast image 8 within the prepont ine cistern and abutting the left side of the clivus there is a 6 mm T2 hyperintense, T1 hypointense enhancing extra-axial nodule. This favors a small meningioma. No mass effect along the adjacent basil ar artery. IMPRESSION: 1. No acute intracranial abnormality. 2. Scattered foci of T2 hyperintensity seen within the periventricular and subcortical white matter a re nonspecific but favor microvascular ischemic change.. 3. A 6 mm enhancing extra-axial nodule abutting the left side of the clivus. This favors a small meni ngioma. ACT 112: Negative or not required by law. Electronically signed by: Dc Parham M.D. 02/03/2022 6:33 PM
[2022-02-03] MEDS ORDERED: predniSONE 20 MG TAB PO ONE (19:03)
[2022-02-03] MEDS ORDERED: ALUMINUM/MAGNESIUM SUSP 30 ML UDC PO PRN (19:08)
[2022-02-03] MEDS ORDERED: MAGNESIUM HYDROXIDE SUSP 30 ML UDC PO PRN (19:08)
[2022-02-03] MEDS ORDERED: DIPHENOXYLATE/ATROPINE 2.5/0.025MG TAB PO PRN (19:08)
[2022-02-03] MEDS ORDERED: MECLIZINE HCL 25 MG TAB PO PRN (19:08)
[2022-02-03] MEDS ORDERED: ACETAMINOPHEN 325 MG TAB PO PRN (19:08)
[2022-02-03] MEDS ORDERED: PHARMACIST DISCHARGE MED REC CONSULT PRN (19:08)
[2022-02-03] MEDS ORDERED: ONDANSETRON INJ 2 MG/ML 2 ML VIAL IV PRN (19:08)
[2022-02-03] MEDS ORDERED: POLYETHYLENE (MIRALAX) 17 GM PACK PO PRN (19:08)
[2022-02-03] MEDS ORDERED: SODIUM CHLORIDE 0.9% 1000ML 1,000 ML IV SCH (19:45)
[2022-02-03] MEDS: clonazePAM 1 MG TAB PO SCH (22:28)
[2022-02-03] MEDS: ENOXAPARIN INJ 40 MG/0.4 ML SYR SQ SCH (22:29)
[2022-02-04 06:42] LABS: Basophils # (auto) 0.01 K/uL (0-0.2); Basophils % (auto) 0.2 %; Eosinophils # (auto) 0.01 K/uL (0-0.5); Eosinophils % (auto) 0.2 %; Hematocrit (blood only) 44.9 % (37-47); Hemoglobin 15.2 g/dL (12.0-16.0); Lymphocytes # (auto) 0.87 K/uL (1.2-3.4); Lymphocytes % (auto) 17.8 %; Mean Corpuscular Hemoglobin 29.9 pg (25-34); Mean Corpuscular Hgb Conc 33.9 g/dL (32-36); Mean Corpuscular Volume 88.4 fL (80-100); Mean Platelet Volume 10.8 fL (7.4-10.4); Monocytes # (auto) 0.03 K/uL (0.11-0.59); Monocytes % (auto) 0.6 %; Neutrophils # (auto) 3.98 K/uL (1.4-6.5); Neutrophils % (auto) 81.2 %; Platelet Count 169 K/uL (130-400); RDW Coefficient of Variation 13.1 % (11.5-14.5); RDW Standard Deviation 42.5 fL (36.4-46.3); Red Blood Count 5.08 M/uL (4.2-5.4)
[2022-02-04 07:09] LABS: BUN Creatinine Ratio 15.3 (10-20); Calcium 8.9 mg/dl (8.5-10.1); Chol HDL Ratio 3.7 (0-5); Creatinine Clr Calc Pharmacy 89.1 ml/min; Est GFR (African American) 96.3 ml/min; Est GFR (Non-African American) 83.1 ml/min; Potassium 3.8 mmol/L (3.5-5.1)
[2022-02-04] MEDS: ESCITALOPRAM OXALATE 20 MG TAB PO SCH (07:32)
[2022-02-04] MEDS: estradioL 1 MG TAB PO SCH (07:32)
[2022-02-04] MEDS: ENOXAPARIN INJ 40 MG/0.4 ML SYR SQ SCH ×2 (07:32→20:59)
[2022-02-04 07:35] LABS: Estimated Average Glucose 103 mg/dl; Hemoglobin A1C 5.2 % (4.5-5.6)
[2022-02-04] MEDS: clonazePAM 1 MG TAB PO SCH ×3 (07:36→21:07)
[2022-02-04] MEDS: predniSONE 20 MG TAB PO SCH (08:45)
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
[2022-02-05] MEDS ORDERED: MELATONIN 3 MG TAB PO PRN (00:13)
[2022-02-05 06:32] LABS: Basophils # (auto) 0.02 K/uL (0-0.2); Basophils % (auto) 0.2 %; Eosinophils # (auto) 0.01 K/uL (0-0.5); Eosinophils % (auto) 0.1 %; Hematocrit (blood only) 42.2 % (37-47); Hemoglobin 14.2 g/dL (12.0-16.0); Immature Granulocytes # (auto) 0.02 K/uL (0.00-0.02); Immature Granulocytes % (auto) 0.2 %; Lymphocytes # (auto) 1.95 K/uL (1.2-3.4); Lymphocytes % (auto) 17.3 %; Mean Corpuscular Hemoglobin 29.6 pg (25-34); Mean Corpuscular Hgb Conc 33.6 g/dL (32-36); Mean Corpuscular Volume 88.1 fL (80-100); Mean Platelet Volume 10.9 fL (7.4-10.4); Monocytes # (auto) 0.85 K/uL (0.11-0.59); Monocytes % (auto) 7.5 %; Neutrophils # (auto) 8.41 K/uL (1.4-6.5); Neutrophils % (auto) 74.7 %; Platelet Count 178 K/uL (130-400); RDW Coefficient of Variation 13.1 % (11.5-14.5); RDW Standard Deviation 42.6 fL (36.4-46.3); Red Blood Count 4.79 M/uL (4.2-5.4); White Blood Count 11.26 K/uL (4.8-10.8)
[2022-02-05 07:00] LABS: BUN Creatinine Ratio 21.3 (10-20); Calcium 8.9 mg/dl (8.5-10.1); Creatinine Clr Calc Pharmacy 80.4 ml/min; Est GFR (African American) 84.8 ml/min; Est GFR (Non-African American) 73.1 ml/min; Potassium 3.5 mmol/L (3.5-5.1)
[2022-02-05] MEDS: clonazePAM 1 MG TAB PO SCH ×2 (08:04→13:57)
[2022-02-05] MEDS: estradioL 1 MG TAB PO SCH (08:04)
[2022-02-05] MEDS: ESCITALOPRAM OXALATE 20 MG TAB PO SCH (08:04)
[2022-02-05] MEDS: ENOXAPARIN INJ 40 MG/0.4 ML SYR SQ SCH (08:05)
[2022-02-05] MEDS: predniSONE 20 MG TAB PO SCH (08:05)
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
[2022-02-05] MEDS ORDERED: STROKE PATIENT DISCHARGE STA (14:55)
[2022-02-08] MEDS ORDERED: predniSONE 20 MG TAB PO ONE (09:00)
[2022-02-09] MEDS ORDERED: predniSONE 10 MG TABLET PO ONE (09:00)
[2022-02-10] MEDS ORDERED: predniSONE 20 MG TAB PO ONE (09:00)
[2022-02-11] MEDS ORDERED: predniSONE 10 MG TABLET PO ONE (09:00)
[2022-02-12] MEDS ORDERED: predniSONE 5 MG TAB PO ONE (09:00)
== END 2022-02-05 15:21 | disposition home health service (06) ==
LOC: ED 11:21 → EDINP 11:21 → SUATTDRO 14:04 → 2N 21:08